=== PATIENT | male | born 1990 | race Caucasian/White ===

== ENCOUNTER 2017-05-09 12:48 | Emergency (ER) | payer SELFPAY ==
[~2017-05-09] VITALS: Ht 182.9 cm; Wt 99.0 kg
[~2017-05-09 12:48] MED LIST: BACT PO; IBUP-232 PO; MEDR4PAK3 PO; TRAM50 PO; Z.0.NO CURRENT MEDS
[2017-05-09 13:02] VITALS: BP 127/73; PULSE 65; RESP 16; TEMP 99.2; O2SAT 99
[2017-05-09] MEDS ORDERED: PRED10PA PO (13:51)
[2017-05-09] MEDS ORDERED: TRIA.1%T TOPICAL (13:51)
[2017-05-09] MEDS ORDERED: CETI-1 PO (13:51)
--- NOTE | 2017-05-09 13:55 | PD ---
HPI Chief Complaint: rash Time Seen by Provider: 13:48 Travel History International Travel<30 days: No Contact w/Intl Traveler<30days: No Traveled to known affect area: No History of Present Illness HPI 26-year-old male here for evaluation of a pruritic rash. Symptoms started 3 days ago. The rash was initially localized to his forearms and hands but now he is not a smoker the rash in the anterior neck as well. He reports that is currently hunting season and he has been on the saravia a lot lately. He is tried using [id number] creams and lotions with no success. He has no other complaints at this time. PFSH Past Medical History Autoimmune Disease: No Gastrointestinal Disorders: No Genitourinary: No Neurologic: No Respiratory: No Past Surgical History Other Surgery: No Social History Alcohol Use: Yes (WEEKENDS) Tobacco Use: Yes (5) Substance Use: No Allergies-Medications (Allergen,Severity, Reaction): Coded Allergies: No Known Allergies (Verified , 01/01/11) Reported Meds & Prescriptions Reported Meds & Active Scripts Active Zyrtec (Cetirizine HCl) 10 Mg Tablet 1 Tab PO DAILY 10 Days Prednisone (21) 10 mg tab Dose Pack (Prednisone) 10 Mg Pack 10 Mg PO DIRECTED Triamcinolone Topical (Triamcinolone Acetonide) 0.1% Cream 1 Applic TOPICAL BID 10 Days Ultram (Tramadol HCl) 50 Mg Tab 50 Mg PO Q6HPRN FOR PAIN Medrol Dosepak (Methylprednisolone) 4 Mg Anthony 4 Mg PO DIRECTED TAKE DIRECTED Reported No Current Meds (Miscellaneous Medication) Misc Motrin (Ibuprofen) 600 Mg Tab 600 Mg PO TID WITH MEALS Bactrim (Trimethoprim/Sulfamethoxazole) 80 Mg/400 Mg Tab 1 Tab PO BID Review of Systems General / Constitutional: No: Fever Skin: Positive Rash, Positive Itching Physical Exam Narrative GENERAL: Well-nourished male in no acute distress SKIN: Warm and dry. Vesicular irregularly spaced rash noted to the forearms and hands. More mildly it is noted on his anterior neck as well. HEAD: Atraumatic. Normocephalic. EYES: Pupils equal and round. No scleral icterus. No injection or drainage. ENT: No nasal bleeding or discharge. Mucous membranes pink and moist. NECK: Trachea midline. No JVD. CARDIOVASCULAR: Regular rate and rhythm. No murmur appreciated. RESPIRATORY: No accessory muscle use. Clear to auscultation. Breath sounds equal bilaterally. Data Data Last Documented VS Vital Signs Date Time Temp Pulse Resp B/P (MAP) Pulse Ox O2 Delivery O2 Flow Rate FiO2 05/09/17 13:02 99.2 65 16 127/73 (91) 99 Room Air MDM Medical Decision Making Medical Screen Exam Complete: Yes Emergency Medical Condition: Yes Medical Record Reviewed: Yes Differential Diagnosis Allergic contact dermatitis, irritant contact dermatitis, atopic dermatitis, scabies, dyshidrotic eczema, viral exanthem Narrative Course Physical examination and history are very consistent with allergic contact dermatitis, likely secondary to poison darell or poison oak. The patient is being discharged with combination antihistamine and steroid treatment. Diagnosis Primary Impression: Allergic contact dermatitis Qualified Codes: L23.9 - Allergic contact dermatitis, unspecified cause Additional Instructions: Medication as prescribed. Avoid scratching at the rash. Follow-up with primary care physician as needed and return for any emergent medical conditions. Med/Other Pt SpecificInfo: Prescription(s) given Scripts Cetirizine HCl (Zyrtec) 10 Mg Tablet 1 TAB PO DAILY for 10 Days Prov: Florence Larson MD 05/09/17 Prednisone (21) 10 mg tab Dose Pack (Prednisone (21) 10 mg tab Dose Pack) 10 Mg Pack 10 MG PO DIRECTED for Inflammation, #1 DSPK 0 Refills Prov: Florence Larson MD 05/09/17 Triamcinolone Topical (Triamcinolone Topical) 0.1% Cream 1 APPLIC TOPICAL BID for Inflammation for 10 Days, GM 0 Refills Prov: Florence Larson MD 05/09/17 Disposition: 01 DISCHARGE HOME Condition: Stable Collin Ybarra May 09, 2017 13:55
[2017-05-09] MEDS ORDERED: ATEN25TA PO (14:10)
== END 2017-05-09 14:11 | disposition home or self-care (01) ==
LOC: PHEFT 12:48
DX: L23.9 Allergic contact dermatitis, unspecified cause (principal); Z72.0 Tobacco use
CPT/HCPCS: 99284